=== PATIENT | male | born 1970 | race Hispanic/Latino ===

== ENCOUNTER 2022-07-21 09:51 | Emergency (ER) | payer OTHER, SELFPAY ==
[2022-07-21] MEDS ORDERED: Lidocaine 1% w/Epinephrine 1:100K 20 ML VIAL ONE (10:16)
[2022-07-21] MEDS ORDERED: Boostrix 0.5 ML (Tdap) VIAL (>/=7 yrs of age) ONE (11:01)
== END 2022-07-21 11:18 | disposition home or self-care (01) ==
LOC: ERS 09:51
DX: S61.411A Laceration without foreign body of right hand, initial encounter (principal); V93.39XA Fall on board unspecified watercraft, initial encounter; Z23 Encounter for immunization
CPT/HCPCS: 90471; 90715; 96372